=== PATIENT | female | born 1990 | race American Indian/Alaskan Native ===

== ENCOUNTER 2017-07-11 15:29 | Emergency (ER) | payer BC ==
[2017-07-11 15:50] VITALS: RESP 18; TEMP 98.1
[2017-07-11] MEDS ORDERED: Sodium Chloride 0.9% 1,000 ML IV STA (16:06)
--- NOTE | 2017-07-11 16:22 | ED PDOC ---
Arrival/HPI - General Chief Complaint: GI Problem Time Seen by Provider: 07/11/17 15:38 Historian: Patient - History of Present Illness Narrative History of Present Illness (Text): 07/11/17 16:19 26yo morbidly obese female who present with complaint of intermittent crampy epigastric abdominal pain with associated nausea, vomiting x5 and diarrhea x4 since this morning. Vomiting is nonbloody/bilious. states she can't tolerate any PO food/drink. she denies fever, chills, sore throat, melena, hematemesis, hemtochezia, chest pain, sick contact, travel, any other complaint. Past Medical History - Provider Review Nursing Documentation Reviewed: Yes - Cardiac Hx Cardiac Disorders: No - Pulmonary Hx Respiratory Disorders: No - Neurological Hx Neurological Disorder: No - HEENT Hx HEENT Disorder: No - Renal Hx Renal Disorder: No - Endocrine/Metabolic Hx Endocrine Disorders: No - Hematological/Oncological Hx Blood Disorders: No - Integumentary Hx Dermatological Disorder: No - Musculoskeletal/Rheumatological Hx Musculoskeletal Disorders: No - Gastrointestinal Hx Gastrointestinal Disorders: No - Genitourinary/Gynecological Hx Genitourinary Disorders: No - Psychiatric Hx Psychophysiologic Disorder: No Hx Substance Use: No Family/Social History - Physician Review Nursing Documentation Reviewed: Yes Family/Social History: Unknown Family HX Smoking Status: Never Smoked Hx Alcohol Use: Yes Frequency of alcohol use: Socially Hx Substance Use: No Allergies/Home Meds Allergies/Adverse Reactions: Allergies shrimp Allergy (Verified 07/11/17 15:50) ANAPHYLAXIS Review of Systems - Physician Review All systems were reviewed & negative as marked: Yes - Review of Systems Constitutional: Normal Eyes: Normal ENT: Normal Respiratory: Normal Cardiovascular: Normal Gastrointestinal: Abdominal Pain, Nausea, Vomiting. absent: Constipation, Hematochezia, Hematemesis Genitourinary Female: Normal Musculoskeletal: Normal Skin: Normal Neurological: Normal Endocrine: Normal Hemo/Lymphatic: Normal Psychiatric: Normal Physical Exam Vital Signs Reviewed: Yes Vital Signs Temp Pulse Resp BP Pulse Ox 07/11/17 15:42 98.1 F 88 18 120/71 98 Temperature: Afebrile Blood Pressure: Normal Pulse: Regular Respiratory Rate: Normal Appearance: Positive for: Well-Appearing, Non-Toxic, Comfortable Pain Distress: None Mental Status: Positive for: Alert and Oriented X 3 - Systems Exam Head: Present: Atraumatic, Normocephalic Pupils: Present: PERRL Extroacular Muscles: Present: EOMI Conjunctiva: Present: Normal Mouth: Present: Moist Mucous Membranes Neck: Present: Normal Range of Motion Respiratory/Chest: Present: Clear to Auscultation, Good Air Exchange. No: Respiratory Distress, Accessory Muscle Use Cardiovascular: Present: Regular Rate and Rhythm, Normal S1, S2. No: Murmurs Abdomen: Present: Tenderness (Mild epigastric tenderness with deep palpation), Distention (Secondary to body habitus), Normal Bowel Sounds, Other (Soft). No: Peritoneal Signs, Rebound, Guarding, McBurney's Point Tender, Rovsing's Sign Present Back: Present: Normal Inspection Upper Extremity: Present: Normal Inspection. No: Cyanosis, Edema Lower Extremity: Present: Normal Inspection. No: Edema Neurological: Present: GCS=15, CN II-XII Intact, Speech Normal Skin: Present: Warm, Dry, Normal Color. No: Rashes Psychiatric: Present: Alert, Oriented x 3, Normal Insight, Normal Concentration Medical Decision Making ED Course and Treatment: 07/11/17 17:55 26yo female in Emergency department for abdominal pain, N/V/D since this morning. she was hemodynamically stable in Emergency department. She was hydrated and lab ordered. Lab was unremarkable in Emergency department Pt tolerated PO challenge in Emergency department Result was DW the pt and she was advised to follow BLAND diet and drink plenty of fluid. Refereed to her PMD. TRT Emergency department for any new or worsening symptoms. - Lab Interpretations Lab Results: 07/11/17 16:25 07/11/17 16:25 Lab Results 07/11/17 17:00: Urine Color Yellow, Urine Appearance Sl cloudy, Urine pH 6.0, Ur Specific [place] 1.020, Urine Protein Negative, Urine Glucose (UA) Negative, Urine Ketones Negative, Urine Blood Large H, Urine Nitrate Negative, Urine Bilirubin Negative, Urine Urobilinogen 0.2, Ur Leukocyte Esterase Negative, Urine RBC 1 - 3, Urine WBC 2 - 5, Ur Epithelial Cells 4 - 5, Urine Bacteria Few 07/11/17 16:25: Sodium 137, Potassium 4.6, Chloride 100, Carbon Dioxide 26, Anion Gap 15, BUN 16, Creatinine 0.9, Est GFR ( Amer) > 60, Est GFR (Non- Af Amer) > 60, Random Glucose 126 H, Calcium 9.4, Total Bilirubin 0.6, AST 25, ALT 35, Alkaline Phosphatase 64, Total Protein 8.2, Albumin 4.2, Globulin 4.0, Albumin/Globulin Ratio 1.1, Lipase 33 07/11/17 16:25: PT 12.2, INR 1.07, APTT 27.4 07/11/17 16:25: WBC 11.4 H, RBC 5.09, Hgb 16.2 H, Hct 46.8, MCV 91.9, MCH 31.8, MCHC 34.6, RDW 13.7, Plt Count 229, MPV 11.4 H, Gran % 89.1 H, Lymph % (Auto) 4.6 L, [place] % (Auto) 5.8, Eos % (Auto) 0.4 L, Baso % (Auto) 0.1, Gran # 10.11 H , Lymph # 0.5 L, [place] # 0.7 H, Eos # 0.1, Baso # 0.01, Neutrophils % (Manual) 89 H, Lymphocytes % (Manual) 5 L, Atypical Lymphs % 2 H, Monocytes % (Manual) 4 , Platelet Evaluation Normal - Medication Orders Current Medication Orders: Discontinued Medications Famotidine (Pepcid) 20 mg IVP STAT STA Stop: 07/11/17 16:07 Last Admin: 07/11/17 16:40 Dose: 20 mg IVP Administration Document 07/11/17 16:40 OCS (Rec: 07/11/17 16:40 [facility]-[id number]) Charges for Administration # of IVP Administrations 1 Sodium Chloride (Sodium Chloride 0.9%) 1,000 mls @ 1,000 mls/hr IV .Q1H STA Stop: 07/11/17 17:05 Last Admin: 07/11/17 16:40 Dose: 1,000 mls/hr eMAR Start Stop Document 07/11/17 16:40 OCS (Rec: 07/11/17 16:40 [facility] [facility] [id number] Intravenous Solution Start Date 07/11/17 Start Time 16:40 End Date 07/11/17 End time 17:40 Total Infusion Time 60 Ketorolac Tromethamine (Toradol) 30 mg IVP STAT STA Stop: 07/11/17 16:07 Last Admin: 07/11/17 17:06 Dose: 30 mg MAR Pain Assessment Document 07/11/17 17:06 OCS (Rec: 07/11/17 17:06 [facility] [facility] [id number] Pain Reassessment Is this a pain reassessment? Yes Sleep Is patient sleeping during reassessment? No Presence of Pain Presence of Pain Yes Location Pain Location Body Site Abdomen Description Description Intermittent Aggravating Factors ADL's Alleviating Factors/Management Medication Techniques IVP Administration Document 07/11/17 17:06 OCS (Rec: 07/11/17 17:06 [facility] [facility] [id number][place] Charges for Administration # of IVP Administrations 1 Ondansetron HCl (Zofran Inj) 4 mg IVP STAT STA Stop: 07/11/17 16:07 Last Admin: 07/11/17 16:40 Dose: 4 mg IVP Administration Document 07/11/17 16:40 OCS (Rec: 07/11/17 16:40 [facility] [id number][place] Charges for Administration # of IVP Administrations 1 Disposition/Present on Arrival - Present on Arrival Any Indicators Present on Arrival: No History of DVT/PE: No History of Uncontrolled Diabetes: No Urinary Catheter: No History of Decub. Ulcer: No History Surgical Site Infection Following: None - Disposition Have Diagnosis and Disposition been Completed?: Yes Diagnosis: Abdominal pain, Vomiting and diarrhea Disposition: HOME/ ROUTINE Disposition Time: 18:00 Patient Plan: Discharge Condition: STABLE Discharge Instructions (ExitCare): Abdominal Pain (ED) Additional Instructions: Follow BLAND diet and drink plenty of fluid Follow up with your doctor Return to Emergency department for any new or worsening symptoms Prescriptions: Famotidine [Pepcid] 40 mg PO DAILY #15 tab Ondansetron ODT [Zofran ODT] 4 mg PO Q6 #7 odt Referrals: Herrera He, [Primary Care Provider] - Follow up with primary [facility] at [facility] [place] [Outside] - Follow up with primary Forms: [email or web address] ([place])
[2017-07-11 16:39] LABS: BASO # 0.01 K/mm3 (0.0-2.0); BASO % 0.1 % (0.0-3.0); EOS # 0.1 (0.0-0.7); EOS % 0.4 % (1.5-5.0); GRAN # 10.11 (1.4-6.5); GRAN % 89.1 % (50.0-68.0); HEMOGLOBIN 16.2 g/dL (12.0-16.0); LYMPH # 0.5 (1.2-3.4); LYMPH % 4.6 % (22.0-35.0); MEAN CELL VOLUME 91.9 fl (80.0-105.0); MEAN CORPUSCULAR HEMOGLOBIN 31.8 pg (25.0-35.0); MEAN CORPUSCULAR HGB CONC 34.6 g/dl (31.0-37.0); MEAN PLATELET VOLUME 11.4 fl (7.0-11.0); MONO # 0.7 (0.1-0.6); MONO % 5.8 % (1.0-6.0); PLATELET COUNT 229 10^3/uL (120.0-450.0); RBC 5.09 10^6/uL (3.5-6.1); RED CELL DISTRIBUTION WIDTH 13.7 % (11.5-14.5); WHITE BLOOD COUNT 11.4 10^3/ul (4.5-11.0)
[2017-07-11 16:49] LABS: ALB/GLOB RATIO 1.1 (1.1-1.8); ALBUMIN 4.2 g/dL (3.0-4.8); ALT/SGPT 35 U/L (7-56); AST/SGOT 25 U/L (14-36); BLOOD UREA NITROGEN 16 mg/dL (7-21); CALCIUM 9.4 mg/dL (8.4-10.5); GFR AFRICAN-AMERICAN > 60; GFR NON-AFRICAN AMERICAN > 60; LIPASE 33 U/L (23-300)
[2017-07-11 16:51] LABS: INR 1.07 (0.93-1.08); PARTIAL THROMBOPLASTIN TIME 27.4 Seconds (25.1-36.5); PROTHROMBIN TIME 12.2 SECONDS (9.4-12.5)
[2017-07-11 17:19] LABS: ATYPICAL LYMPHOCYTE 2 % (0.0-0.0); LYMPHOCYTE 5 % (22.0-35.0); MONOCYTE 4 % (1.0-6.0); NEUTROPHIL 89 % (50.0-70.0); PLATELET ESTIMATE NORMAL (NORMAL)
[2017-07-11 17:30] LABS: URINE BILIRUBIN NEGATIVE (NEGATIVE); URINE BLOOD LARGE (NEGATIVE); URINE GLUCOSE (UA) NEGATIVE (NEGATIVE); URINE LEUKOCYTE ESTERASE NEGATIVE Leu/uL (NEGATIVE); URINE NITRATE NEGATIVE (NEGATIVE); URINE PROTEIN NEGATIVE mg/dL (<30 mg/dL); URINE UROBILINOGEN 0.2 E.U./dL (<1 E.U./dL)
[2017-07-11 17:36] LABS: URINE APPEARANCE SL CLOUDY (CLEAR); URINE COLOR YELLOW (YELLOW)
[2017-07-11 17:47] LABS: URINE BACTERIA FEW (NEG)
[2017-07-11 18:44] VITALS: BP 131/65; PULSE 76; O2SAT 100
== END 2017-07-11 18:31 | disposition home or self-care (01) ==
LOC: ED 15:29
DX: R11.10 Vomiting, unspecified (principal); R19.7 Diarrhea, unspecified; R10.9 Unspecified abdominal pain
CPT/HCPCS: 80053; 81001; 83690; 85025; 85610; 85730; 96361; 96374; 96375; 99283; J1885; J2405; J7040